=== PATIENT | female | born 1950 | race Caucasian/White ===

== ENCOUNTER → 2017-08-29 | Outpatient (CLI) | payer MEDICARE, BC | LOC: GMAB 11:16 | PROVIDERS: ATTEND Family Medicine | DX: I10 Essential (primary) hypertension (principal) ==

== ENCOUNTER → 2017-08-31 | Outpatient (CLI) | payer MEDICARE, BC ==
--- NOTE | 2017-09-01 16:32 | MAM ---
EXAM DESCRIPTION: 3D Screening BILATERAL : Digital Mammography. CLINICAL HISTORY: 67 years Female SCREENING . No complaints. No family history of breast cancer. Postmenopausal. No HRT. COMPARISON: Baseline study at this facility.. No prior reports available. TECHNIQUE: Bilateral CC and MLO projection full-field images, 3-D tomosynthesis digital mammographic technique. Also bilateral synthesized CC/ MLO full-field images. CAD not utilized. FINDINGS: The breast parenchymal density pattern is: Heterogeneously dense breast tissue, which may obscure small masses. No skin thickening or nipple retraction bilateral solitary microcalcifications. No focal, stellate mass or density, focal asymmetry , and no suspicious microcalcifications bilaterally. IMPRESSION: BI-RADS CATEGORY: 2 - BENIGN FINDINGS. FOLLOW UP: Routine digital bilateral screening, one year interval from August 2017. Written communication explaining the IMPRESSION and follow-up, will be mailed to the patient and referring health care provider. According to the [employer], yearly mammograms are recommended starting at age 40 and continuing as long as a woman is in good health. Any breast change noted on a breast self-exam should be reported promptly to the patient's healthcare provider. Breast MRI is recommended for women with an approximately 20-25% or greater lifetime risk of breast cancer, including women with a strong family history of breast or ovarian cancer and women who have been treated for Hodgkin's disease. A negative mammographic report should not delay tissue diagnosis in patients with significant clinical history or physical findings. Extremely dense breast tissue limits the sensitivity of digital mammography. Electronically signed by: Aly Felix MD 09/01/2017 4:31 PM CDT
== END ==
LOC: MAMMO 09:19
PROVIDERS: ATTEND Family Medicine
DX: Z12.31 Encounter for screening mammogram for malignant neoplasm of breast (principal)

== ENCOUNTER 2018-01-17 05:56 | Day surgery (SDC) | payer MEDICARE, BC ==
[2018-01-17] MEDS ORDERED: LACTATED RINGERS 1,000 ML ONE (06:25)
[2018-01-17] MEDS ORDERED: PROPOFOL 200 MG/20 ML VIAL IV ONE (07:00)
[2018-01-17 09:18] VITALS: O2SAT 96
--- NOTE | 2018-01-17 09:40 | OP ---
DATE OF PROCEDURE: 01/17/18 PREOPERATIVE DIAGNOSIS: 1. Family history of colon cancer. POSTOPERATIVE DIAGNOSIS: 1. Normal colonoscopy. PROCEDURE: 1. Colonoscopy. SURGEON: Joshua Blue MD ANESTHESIA: Monitored anesthesia care. ESTIMATED BLOOD LOSS: Less than 5 mL. COMPLICATIONS: None. PROCEDURE: The patient was placed in the left lateral decubitus position. After deep sedation was achieved, the adult Olympus colonoscope was inserted through the anus and into the rectum and advanced under direct visualization to the cecum without difficulty. The cecum was identified by the terminal ileum, ileocecal valve and the appendiceal orifice. Photodocumentation of these locations was performed. The patient's bowel preparation was good. The endoscope was then progressively withdrawn and the total colonic lumen evaluated. Retroflexion was performed in the right colon and the rectum. The endoscope was then withdrawn and the procedure terminated. The patient tolerated the procedure well with no immediate complications. FINDINGS: Unremarkable colonoscopy to the terminal ileum. IMPRESSION: Unremarkable colonoscopy. RECOMMENDATIONS: 1. Okay to discharge home. 2. Resume home medications and diet. 3. Repeat colonoscopy in 5 years given the patient's family history of colon cancer. 4. Followup with primary care physician or referring physician as previously scheduled. #[id number] [facility]
[2018-01-17 14:04] VITALS: BP 134/75; TEMP 99.4
== END 2018-01-17 10:15 | disposition home or self-care (01) ==
LOC: AMB 05:56
PROVIDERS: ATTEND Internal Medicine Gastroenterology
DX: Z12.11 Encounter for screening for malignant neoplasm of colon (principal); I10 Essential (primary) hypertension; K21.9 Gastro-esophageal reflux disease without esophagitis; Z80.0 Family history of malignant neoplasm of digestive organs; Z79.899 Other long term (current) drug therapy
CPT/HCPCS: 00812; G0105; J3490; J7120

== ENCOUNTER → 2018-08-29 | Outpatient (CLI) | payer MEDICARE, BC | LOC: GMAE 10:43 | PROVIDERS: ATTEND Family Medicine | DX: I10 Essential (primary) hypertension (principal) ==

== ENCOUNTER → 2019-08-29 | Outpatient (CLI) | payer MEDICARE, OTHER | LOC: GMAE 11:40 | PROVIDERS: ATTEND Family Medicine | DX: I10 Essential (primary) hypertension (principal) ==

== ENCOUNTER 2019-10-01 17:44 | Emergency (ER) | payer MEDICARE, BC ==
[2019-10-01 18:06] VITALS: BP 145/87; TEMP 99.6; O2SAT 96
--- NOTE | 2019-10-01 18:51 | RAD ---
EXAM: XR Abdomen, 2 Views and XR Chest, 1 View CLINICAL HISTORY: left flank pain 24 hours TECHNIQUE: Frontal view of the chest, frontal view of the abdomen/pelvis and upright or decubitus view of the abdomen. COMPARISON: No relevant prior studies available. FINDINGS: Lungs: Unremarkable. No consolidation. Pleural space: Calcified granuloma left lateral costophrenic sulcus. No pneumothorax. Heart: Unremarkable. No cardiomegaly. Mediastinum: Unremarkable. Intraperitoneal space: No free air. Gastrointestinal tract: Moderate colonic stool present most copious on the right. No distention. Organs: Both renal shadows are largely obscured by stool and gas. Small kidney stones may not be visible. Bones/joints: Convex left scoliosis. Diffuse mild degenerative change of the spine. Vasculature: There is a left pelvic phlebolith. IMPRESSION: 1. Both renal shadows are largely obscured by stool and gas. Small kidney stones may not be visible. 2. Moderate stool without obstruction. Electronically signed by: Mirian Faulkner MD 10/01/2019 6:49 PM CDT
[2019-10-01] MEDS ORDERED: KETOROLAC TROMETHAMINE INJ 30 MG/ML VIAL IM ONE (18:57)
--- NOTE | 2019-10-01 19:49 | CT ---
EXAM DESCRIPTION: Abdoment/Pelvis w/o Contrast CLINICAL HISTORY: 69 years Female left flank and lateral abd pain 24 hrs COMPARISON: None. TECHNIQUE: Contiguous axial images obtained through the abdomen and pelvis without IV contrast. Reformatted images obtained. This exam was performed according to our department optimization program which includes automated exposure control, adjustment of the mA and/or kv according to patient size and/or use of iterative reconstruction technique. FINDINGS: The lung bases are clear. Hiatal hernia. Liver appears unremarkable. The spleen and pancreas appear unremarkable. No adrenal masses. Bilateral renal calculi without evidence of hydronephrosis or obstructive uropathy. The gallbladder is distended. No obvious wall thickening or stones. No aneurysmal dilatation of the aorta. No bowel obstruction. There appears to be relaxation of the pelvic floor with prolapse of the rectum and vagina as well as small degree of lowering of the base of the bladder. No free pelvic fluid. IMPRESSION: Renal calculi without hydronephrosis or obstructive uropathy Distended gallbladder Relaxation of the pelvic floor muscles with prolapse of pelvic structures Electronically signed by: Linda Hamlin MD 10/01/2019 7:47 PM CDT
[2019-10-01] MEDS ORDERED: CYCLOBENZAPRINE HCL 10 MG TAB PO ONE (19:55)
[2019-10-01] MEDS ORDERED: predniSONE 20 MG TAB PO ONE (19:55)
--- NOTE | 2019-10-01 20:03 | ED.PDOC ---
History of Present Illness - General Chief Complaint: Abdominal Pain Stated Complaint: Left flank pain and swelling Time Seen by Provider: 10/01/19 17:57 Source: patient Exam Limitations: no limitations - History of Present Illness Initial Comments: The patient is a 69-year-old female presented emergency room secondary to left flank and abdominal pain starting yesterday. She feels a fullness and pain with palpation. It is aching and sometimes sharp and shooting. She does have significant scoliosis. No nausea vomiting or diarrhea. No significant constipation. No trauma. No syncope or near syncope. No rash developing no history of shingles in the area. No fever. No shortness of breath. Timing/Duration: 24 hours Severity: moderate Improving Factors: immobilization Worsening Factors: movement Associated Symptoms: denies symptoms Allergies/Adverse Reactions: Allergies NO KNOWN ALLERGY Allergy (Verified 10/01/19 18:14) Home Medications: Ambulatory Orders Zolpidem Tartrate [Ambien] 2.5 mg PO BEDTIME 01/16/18 amLODIPine BESYLATE [Norvasc] 5 mg PO DAILY 01/16/18 Ciprofloxacin [Cipro] 500 mg PO BID #10 tab 10/01/19 Cyclobenzaprine HCl [Flexeril] 10 mg PO TID PRN #20 tab 10/01/19 predniSONE [Prednisone] 20 mg PO DAILY #7 tab 10/01/19 Review of Systems - Review of Systems Constitutional: States: no symptoms reported EENTM: States: no symptoms reported Respiratory: States: no symptoms reported Cardiology: States: no symptoms reported Gastrointestinal/Abdominal: States: see HPI Genitourinary: States: no symptoms reported Musculoskeletal: States: see HPI, back pain Skin: States: no symptoms reported Neurological: States: see HPI Endocrine: States: no symptoms reported All other Systems: No Change from Baseline Past Medical History (General) - Patient Medical History Hx Seizures: No Hx Stroke: No Hx Dementia: No Hx Asthma: No Hx of COPD: No Hx Cardiac Disorders: No Hx Congestive Heart Failure: No Hx Pacemaker: No Hx Hypertension: Yes Hx Thyroid Disease: No Hx Diabetes: No Hx Gastroesophageal Reflux: No Hx Renal Disease: No Hx Cancer: No Hx of HIV: No Hx Hepatitis C: No Hx MRSA: No Surgical History: Hysterectomy - Vaccination History Hx Influenza Vaccination: No Hx Pneumococcal Vaccination: Yes - Social History Hx Tobacco Use: No Hx Alcohol Use: No - Female History Patient is a Female of Child Bearing Age (10 -59 yrs old): No Family Medical History - Family History Mother Family History: Unknown Living Status: Unknown Physical Exam - Physical Exam General Appearance: Alert, No apparent distress Eye Exam: bilateral normal Ears, Nose, Throat: hearing grossly normal, normal pharynx Neck: full range of motion, supple Respiratory: lungs clear, normal breath sounds, no respiratory distress, no accessory muscle use Cardiovascular/Chest: normal peripheral pulses, regular rate, rhythm, no edema Peripheral Pulses: radial,right: 2+, radial,left: 2+ Gastrointestinal/Abdominal: soft, other - Left lateral abdomen discomfort to palpation. Rectal Exam: deferred Back Exam: no vertebral tenderness, CVA tenderness (L) Extremity: normal range of motion, non-tender, normal inspection, no pedal edema, normal capillary refill Neurologic: hired help II-XII nml as tested, alert, normal mood/affect, oriented x 3 Skin Exam: normal color Comments: Vital Signs - 24 hr 10/01/19 10/01/19 17:59 18:18 Temperature 99.6 F Pulse Rate [ 94 H 94 H Left Brachial] Respiratory 22 Rate Blood Pressure 145/87 [Left Arm] O2 Sat by Pulse 96 Oximetry Progress - Progress Progress: 10/01/19 20:03 The patient is a 69-year-old female presented emergency room secondary to left flank and abdominal pain. Based on the work-up I believe this is due to a nerve being pinched in lumbar spine on the left. The patient is correspondingly going to be placed on prednisone and Flexeril for the next week. She does need to try to do stretching exercises as well as decompression exercises. Topical heat may also prove beneficial. I do want her to follow back up with her primary care doctor towards the end of this week or early next week for repeat evaluation. The patient does also have a small urinary tract infection and will be placed on ciprofloxacin for the next 5 days. Keep well-hydrated. ER warnings are given. diann garza [phone] - Results/Orders Results/Orders: CT scan of abdomen pelvis shows no acute obvious intra-abdominal pathology. No evidence of any vertebral fractures. She has chronic pelvic floor insufficiency. See report for details. Laboratory Results - last 24 hr 10/01/19 10/01/19 10/01/19 18:00 18:25 18:25 WBC 5.0 RBC 4.16 L Hgb 11.9 L Hct 37.3 MCV 89.6 MCH 28.6 MCHC 31.9 L RDW 13.8 Plt Count 179 MPV 9.3 Absolute Neuts (auto) 2.80 Absolute Lymphs (auto) 1.60 Absolute Monos (auto) 0.40 Absolute Eos (auto) 0.20 Absolute Basos (auto) 0.00 Neutrophils % 55.8 Lymphocytes % 32.8 Monocytes % 7.6 Eosinophils % 3.1 Basophils % 0.7 Sodium 140 Potassium 3.7 Chloride 106 Carbon Dioxide 27 Anion Gap 10.7 L BUN 18 Creatinine 0.82 BUN/Creatinine Ratio 22.0 H Random Glucose 106 H Serum Osmolality 281.7 Calcium 9.0 Total Bilirubin 0.3 AST 27 ALT 24 Alkaline Phosphatase 51 Serum Total Protein 7.6 Albumin 4.4 Globulin 3.2 Albumin/Globulin Ratio 1.4 Urine Color Yellow Urine Appearance Clear Urine pH 7.5 Ur Specific [place] 1.015 Urine Protein Negative Urine Glucose (UA) Negative Urine Ketones Negative Urine Blood Trace-intact H Urine Nitrite Negative Urine Bilirubin Negative Urine Urobilinogen 0.2 Ur Leukocyte Esterase Small H Urine RBC 1-3 Urine WBC 5-10 H Ur Epithelial Cells 0 Amorphous Sediment 1+ Urine Bacteria Rare - EKG/XRAY/CT CT Ordered: No Departure - Departure Clinical Impression: Lumbar radiculopathy, acute, Cystitis Disposition: Discharge to Home or Self Care Condition: Fair Departure Forms: ED Discharge - Pt. Copy, Patient Portal Self Enrollment Instructions: Low Back Pain in Adults, Urinary Tract Infection, Adult (DC) Diet: regular diet Activity: increase activity as tolerated Referrals: FLAQUITO PAULINO MD [Primary Care Provider] - 1-2 Weeks Prescriptions: Ciprofloxacin [Cipro] 500 mg PO BID #10 tab Cyclobenzaprine HCl [Flexeril] 10 mg PO TID PRN #20 tab PRN Reason: Muscle Spasms predniSONE [Prednisone] 20 mg PO DAILY #7 tab Home Medications: Ambulatory Orders Zolpidem Tartrate [Ambien] 2.5 mg PO BEDTIME 01/16/18 amLODIPine BESYLATE [Norvasc] 5 mg PO DAILY 01/16/18 Ciprofloxacin [Cipro] 500 mg PO BID #10 tab 10/01/19 Cyclobenzaprine HCl [Flexeril] 10 mg PO TID PRN #20 tab 10/01/19 predniSONE [Prednisone] 20 mg PO DAILY #7 tab 10/01/19 Additional Instructions: The patient is a 69-year-old female presented emergency room secondary to left flank and abdominal pain. Based on the work-up I believe this is due to a nerve being pinched in lumbar spine on the left. The patient is correspondingly going to be placed on prednisone and Flexeril for the next week. She does need to try to do stretching exercises as well as decompression exercises. Topical heat may also prove beneficial. I do want her to follow back up with her primary care doctor towards the end of this week or early next week for repeat evaluation. The patient does also have a small urinary tract infection and will be placed on ciprofloxacin for the next 5 days. Keep well- hydrated. ER warnings are given.
== END 2019-10-01 20:11 | disposition home or self-care (01) ==
LOC: ER 17:44
DX: M54.16 Radiculopathy, lumbar region (principal); N30.00 Acute cystitis without hematuria; R10.9 Unspecified abdominal pain; I10 Essential (primary) hypertension
CPT/HCPCS: 36415; 74019; 74176; 80053; 81001; 85025; 87086; J1885; J7512